=== PATIENT | male | born 1990 | race African-American/Black ===

== ENCOUNTER 2022-04-04 15:15 | Emergency (ER) | payer OTHER ==
[~2022-04-04] VITALS: Ht 172.7 cm; Wt 87.0 kg
[2022-04-04 18:00] VITALS: BP 132/78
[2022-04-04] MEDS ORDERED: ASPIRIN 81MG TABLET PO ONE (18:30)
[2022-04-04 18:34] LABS: BASOPHILS % 0.4 % (0.0-2.0); EOSINOPHILS % 2.8 % (0.0-5.0); HEMATOCRIT. 35.6 % (42.0-52.0); HEMOGLOBIN. 10.9 g/dL (14.0-18.0); LYMPHOCYTES % 33.2 % (20.0-50.0); MEAN CORPUSCULAR HEMOGLOBIN 19.5 pg (28.0-32.0); MEAN CORPUSCULAR VOLUME 63.6 fL (80.0-94.0); MEAN PLATELET VOLUME 9.2 fl (7.4-10.4); MONOCYTES % 9.1 % (2.0-8.0); NEUTROPHILS % 54.5 % (40.0-76.0); PLATELET 517 x1000/uL (130-400); RED CELL DISTRIBUTION WIDTH 19.6 % (11.6-14.6)
[2022-04-04 18:43] LABS: CHLORIDE 105 mEq/L (98-107)
[2022-04-04 19:38] LABS: PLATELET ESTIMATE MARKEDLY INCREASED
[2022-04-04] MEDS ORDERED: MECLIZINE 25MG TABLET PO ONE (19:45)
[2022-04-04 20:00] LABS: CLARITY URINE CLEAR (CLEAR); COLOR URINE YELLOW (YELLOW); KETONES URINE NEGATIVE (NEGATIVE); LEUKOCYTE ESTERASE URINE NEGATIVE (NEGATIVE); NITRITE URINE NEGATIVE (NEGATIVE); OCCULT BLOOD URINE NEGATIVE (NEGATIVE); PH URINE 5.5 (4.5-8.0); PROTEIN URINE NEGATIVE (NEGATIVE); SPECIFIC GRAVITY URINE 1.007 (1.005-1.030); UROBILINOGEN URINE 0.2 E.U./dL (0.2-1.0)
[2022-04-04 20:19] LABS: *AMPHETAMINES SCREEN URINE NEGATIVE (NEGATIVE); *BARBITURATES SCREEN URINE NEGATIVE (NEGATIVE); *BENZODIAZEPINES SCREEN URINE NEGATIVE (NEGATIVE); *COCAINE SCREEN URINE NEGATIVE (NEGATIVE); CANNABINOID URINE SCREEN PRESUMTIVE POSITIVE (NEGATIVE); METHADONE URINE SCREEN NEGATIVE (NEGATIVE); OPIATES URINE SCREEN NEGATIVE (NEGATIVE); PHENCYCLIDINE URINE SCREEN NEGATIVE (NEGATIVE)
[2022-04-04] MEDS ORDERED: MECL-217 MT (20:44)
== END 2022-04-04 21:43 | disposition home or self-care (01) ==
LOC: ER 15:15
DX: R42 Dizziness and giddiness (principal); F12.10 Cannabis abuse, uncomplicated
CPT/HCPCS: 36415; 71045; 80053; 80305; 81003; 83880; 84484; 85025; 93005; 99285; J8597; Z7610